=== PATIENT | male | born 1950 | race Caucasian/White ===

== ENCOUNTER 2024-10-08 09:11 | Day surgery (SDC) | payer MEDICARE ==
[~2024-10-08] VITALS: Ht 188 cm; Wt 93.0 kg
[~2024-10-08 09:11] MED LIST: ACTOS45 MG PO; B-122000 MCG PO; B125000 MCG; BL ASPIRIN325 MG PO; FARXIGA5 MG; FENOFIBRATE160 MG PO; FLEXERIL PO; INVOKANA300 MG PO; JANUVIA100 MG PO; KETOROLAC60 MG/2 ML IJ; LISINOP/HCTZ1 TA2 PO; MOTRIN PO; MOTRIN800 MG PO; MOUNJARO5 M1; NAPROSYN500 MG PO; ROSUVASTATIN CA20 MG PO; SOLU-MEDROL125 MG IM; TIZANIDINE HCL6 MG PO; [UNRECOGNIZED DRUG - OTHER]
[2024-10-08] MEDS ORDERED: FAMOTIDINE 10MG/ML 2ML SDV IV ONE (09:30)
[2024-10-08] MEDS ORDERED: ceFAZolin Sodium 2 GM/VIAL SDV ONE (09:30)
[2024-10-08] MEDS ORDERED: SODIUM CHLORIDE 0.9% 1,000 ML IV ONE (09:30)
[2024-10-08] MEDS ORDERED: SODIUM CHLORIDE 0.9% 100 ML IV ONE (09:30)
[2024-10-08] MEDS ORDERED: STERILE WATER FOR IRRIGATION 1,000 ML BTL IR ONE (10:42)
[2024-10-08] MEDS ORDERED: SODIUM CHLORIDE 1,000 ML BTL IR ONE (10:42)
[2024-10-08] MEDS ORDERED: BUPIVACAINE HCL PF 0.5% 30 ML VIAL ONE (10:42)
[2024-10-08] MEDS ORDERED: LIDOCAINE HCL 1% (10MG/ML) 100 MG/10 ML MDV ONE (10:43)
[2024-10-08] MEDS ORDERED: SODIUM CHLORIDE 20 ML/VIAL SDV ONE (10:52)
[2024-10-08] MEDS ORDERED: PERCOCET 5/325M1 TAB PO (11:51)
[2024-10-08] MEDS ORDERED: ACETAMINOPHEN 100 ML IV ONE (11:59)
[2024-10-08 13:32] VITALS: BP 125/63
[2024-10-08] MEDS ORDERED: LIDOCAINE HCL 2% 2ML SDV IV ONE (13:46)
[2024-10-08] MEDS ORDERED: PROPOFOL 200 MG/20 ML VIAL IV ONE (13:46)
== END 2024-10-08 12:46 | disposition home or self-care (01) ==
LOC: ORM 09:11
PROVIDERS: ATTEND Surgery
PROC: 0JB40ZZ Excision of Right Neck Subcutaneous Tissue and Fascia, Open Approach (ICD-10-PCS; principal; 2024-10-08)
DX: D17.0 Benign lipomatous neoplasm of skin and subcutaneous tissue of head, face and neck (principal); I10 Essential (primary) hypertension; E11.9 Type 2 diabetes mellitus without complications; Z79.85 Long-term (current) use of injectable non-insulin antidiabetic drugs
CPT/HCPCS: J0131; J0690